=== PATIENT | female | born 1960 | race Caucasian/White ===

== ENCOUNTER → 2023-12-10 06:26 | Day surgery (SDC) | payer OTHER, SELFPAY | LOC: GI 06:26 | PROVIDERS: ATTENDING PHYSICIAN Internal Medicine Gastroenterology | DX: Z86.010 Personal history of colon polyps (principal); K64.8 Other hemorrhoids | CPT/HCPCS: G0105 ==

== ENCOUNTER → 2023-12-18 10:36 | Outpatient (REF) | payer MEDICARE, SELFPAY | LOC: WDC 10:36 | PROVIDERS: ATTENDING PHYSICIAN Obstetrics & Gynecology; FAMILY PHYSICIAN Family Medicine | DX: Z12.31 Encounter for screening mammogram for malignant neoplasm of breast (principal) | CPT/HCPCS: 77063; 77067 ==

== ENCOUNTER → 2024-01-02 09:10 | Outpatient (REF) | payer MEDICARE, SELFPAY | LOC: WDC 09:10 | PROVIDERS: ATTENDING PHYSICIAN Obstetrics & Gynecology; FAMILY PHYSICIAN Family Medicine | DX: R92.8 Other abnormal and inconclusive findings on diagnostic imaging of breast (principal) | CPT/HCPCS: 76642 ==

== ENCOUNTER → 2024-01-09 12:09 | Outpatient (REF) | payer MEDICARE, SELFPAY ==
--- NOTE | 2024-01-09 14:04 | OID.BR.INTR ---
[facility] Breast Navigator - Initial
- -
Date of Contact: 01/09/24
Met with patient. Patient given written information on navigator services and support services available at [facility]. Will follow up as needed per protocol.
== END ==
LOC: WDC 12:09
PROVIDERS: ATTENDING PHYSICIAN Obstetrics & Gynecology; FAMILY PHYSICIAN Family Medicine
DX: N63.11 Unspecified lump in the right breast, upper outer quadrant (principal)
CPT/HCPCS: 88305; 19083; 77065; 88341; 88342; 88360; A4648

== ENCOUNTER → 2024-01-15 09:52 | Outpatient (REF) | payer MEDICARE, SELFPAY | LOC: RAD 09:52 | PROVIDERS: ATTENDING PHYSICIAN Obstetrics & Gynecology; FAMILY PHYSICIAN Family Medicine | DX: M85.89 Other specified disorders of bone density and structure, multiple sites (principal) | CPT/HCPCS: 77080 ==

== ENCOUNTER → 2024-01-23 16:34 | Outpatient (REF) | payer MEDICARE, SELFPAY | LOC: MRI 3T 16:34 | PROVIDERS: ATTENDING PHYSICIAN Surgery; FAMILY PHYSICIAN Family Medicine | DX: C50.411 Malignant neoplasm of upper-outer quadrant of right female breast (principal); Z17.0 Estrogen receptor positive status [ER+] | CPT/HCPCS: 77049; A9585 ==

== ENCOUNTER → 2024-02-18 08:43 | Outpatient (REF) | payer MEDICARE, SELFPAY | LOC: WDC 08:43 | PROVIDERS: ATTENDING PHYSICIAN Surgery | DX: C50.411 Malignant neoplasm of upper-outer quadrant of right female breast (principal); N63.11 Unspecified lump in the right breast, upper outer quadrant | CPT/HCPCS: 19285; 76942; 77065; A4648 ==

== ENCOUNTER → 2024-02-19 07:33 | Outpatient (REF) | payer MEDICARE, SELFPAY | LOC: WDC 07:33 | PROVIDERS: ATTENDING PHYSICIAN Surgery | DX: C50.411 Malignant neoplasm of upper-outer quadrant of right female breast (principal) | CPT/HCPCS: 88305; 88307; 88332; 76098; 88331; 88342 ==

== ENCOUNTER 2024-04-14 15:48 | Outpatient (RCR) | payer MEDICARE, SELFPAY | END 2024-04-14 23:59 | disposition home or self-care (01) | LOC: RPT 15:48 | DX: I97.2 Postmastectomy lymphedema syndrome (principal); C50.911 Malignant neoplasm of unspecified site of right female breast; M85.89 Other specified disorders of bone density and structure, multiple sites; L90.5 Scar conditions and fibrosis of skin; R29.3 Abnormal posture; Z73.6 Limitation of activities due to disability; Z79.811 Long term (current) use of aromatase inhibitors | CPT/HCPCS: 97163; 97535 ==

== ENCOUNTER 2024-05-13 10:22 | Outpatient (RCR) | payer MEDICARE, SELFPAY | END 2024-05-13 23:59 | disposition home or self-care (01) | LOC: RPT 10:22 | DX: I97.2 Postmastectomy lymphedema syndrome (principal); C50.911 Malignant neoplasm of unspecified site of right female breast; M85.89 Other specified disorders of bone density and structure, multiple sites; L90.5 Scar conditions and fibrosis of skin; R29.3 Abnormal posture; Z79.811 Long term (current) use of aromatase inhibitors | CPT/HCPCS: 97110; 97140; 97164 ==

== ENCOUNTER 2024-06-11 08:54 | Outpatient (RCR) | payer MEDICARE, SELFPAY | END 2024-06-11 10:03 | disposition home or self-care (01) | LOC: RPT 08:54 | DX: I97.2 Postmastectomy lymphedema syndrome (principal); C50.911 Malignant neoplasm of unspecified site of right female breast; M85.89 Other specified disorders of bone density and structure, multiple sites; L90.5 Scar conditions and fibrosis of skin; R29.3 Abnormal posture; Z79.811 Long term (current) use of aromatase inhibitors | CPT/HCPCS: 97110; 97112; 97140; 97530 ==

== ENCOUNTER → 2024-09-08 16:20 | Outpatient (REF) | payer MEDICARE, SELFPAY | LOC: RAD 16:20 | PROVIDERS: ATTENDING PHYSICIAN Family Medicine | DX: M79.672 Pain in left foot (principal) | CPT/HCPCS: 73630 ==

== ENCOUNTER → 2024-09-10 06:51 | Outpatient (REF) | payer MEDICARE, SELFPAY | LOC: RAD 06:51 | PROVIDERS: ATTENDING PHYSICIAN Family Medicine | DX: Z95.828 Presence of other vascular implants and grafts (principal) | CPT/HCPCS: 76770 ==

== ENCOUNTER → 2024-09-25 07:48 | Outpatient (REF) | payer MEDICARE, SELFPAY | LOC: WDC 07:48 | PROVIDERS: ATTENDING PHYSICIAN Family Medicine Geriatric Medicine; FAMILY PHYSICIAN Family Medicine | DX: R92.30 Dense breasts, unspecified (principal) | CPT/HCPCS: 76641 ==

== ENCOUNTER → 2024-09-28 07:18 | Outpatient (REF) | payer MEDICARE, SELFPAY | LOC: MRI 3T 07:18 | PROVIDERS: ATTENDING PHYSICIAN Orthopaedic Surgery; FAMILY PHYSICIAN Family Medicine | DX: S99.922A Unspecified injury of left foot, initial encounter (principal); M77.42 Metatarsalgia, left foot | CPT/HCPCS: 73718 ==

== ENCOUNTER → 2024-12-19 08:30 | Outpatient (REF) | payer MEDICARE, SELFPAY | LOC: WDC 08:30 | PROVIDERS: ATTENDING PHYSICIAN Surgery; FAMILY PHYSICIAN Family Medicine | DX: Z12.31 Encounter for screening mammogram for malignant neoplasm of breast (principal); Z85.3 Personal history of malignant neoplasm of breast; C50.411 Malignant neoplasm of upper-outer quadrant of right female breast; R92.30 Dense breasts, unspecified | CPT/HCPCS: 77063; 77067 ==

== ENCOUNTER → 2025-02-21 06:44 | Outpatient (REF) | payer MEDICARE, SELFPAY | LOC: PAVMRI 06:44 | PROVIDERS: ATTENDING PHYSICIAN Student in an Organized Health Care Education/Training Program; FAMILY PHYSICIAN Family Medicine | DX: M79.671 Pain in right foot (principal) | CPT/HCPCS: 73721 ==

== ENCOUNTER → 2025-04-03 07:51 | Outpatient (REF) | payer MEDICARE, SELFPAY | LOC: WDC 07:51 | PROVIDERS: ATTENDING PHYSICIAN Obstetrics & Gynecology; FAMILY PHYSICIAN Family Medicine | DX: R92.8 Other abnormal and inconclusive findings on diagnostic imaging of breast (principal); R92.2 Inconclusive mammogram | CPT/HCPCS: 76642 ==